=== PATIENT | male | born 1990 | race Caucasian/White ===

== ENCOUNTER 2024-03-25 16:25 | Inpatient (IN) | payer BC ==
[2024-03-25 16:45] LABS: Glucose,Whole Blood 79 mg/dL (70-110)
[2024-03-25 17:47] LABS: Basophils # (A) 0.1 k/uL (0-0.2); Basophils % (A) 1 %; Eosinophils # (A) 0.2 k/uL (0-0.7); Eosinophils % (A) 2 %; HCT 47.8 % (39.0-53.0); HGB 16.9 gm/dL (13.0-17.5); Lymphocytes # (A) 2.4 k/uL (1.0-4.8); Lymphocytes % (A) 22 %; MCH 31.1 pg (25.0-35.0); MCHC 35.3 g/dL (31.0-37.0); MCV 88.2 fL (80.0-100.0); Mean Platelet Volume 7.5; Monocytes # (A) 0.6 k/uL (0-1.0); Monocytes % (A) 6 %; Neutrophils # (A) 7.3 k/uL (1.3-7.7); Neutrophils % (A) 68 %; Platelet Count 230 k/uL (150-450); RBC 5.42 m/uL (4.30-5.90); RDW 12.1 % (11.5-15.5); WBC 10.8 k/uL (3.8-10.6)
[2024-03-25 17:57] LABS: ALT 43 U/L (4-49); AST 26 U/L (17-59); African American GFR (CKD) >90 (>60 ml/min/1.73 sqM); Albumin 4.5 g/dL (3.5-5.0); Alkaline Phosphatase 90 U/L (38-126); Anion Gap 10 mmol/L; Blood Urea Nitrogen 10 mg/dL (9-20); Calcium 9.1 mg/dL (8.4-10.2); Carbon Dioxide 20 mmol/L (22-30); Chloride 109 mmol/L (98-107); Glucose 84 mg/dL (74-99); Non-African American GFR(CKD) >90 (>60 ml/min/1.73 sqM); Sodium 139 mmol/L (137-145); Total Bilirubin 0.7 mg/dL (0.2-1.3); Total Protein 7.3 g/dL (6.3-8.2)
[2024-03-25 17:58] LABS: Partial Thromboplastin Time 29.7 sec (22.0-30.0); Prothrombin Time 10.9 sec (10.0-12.5)
--- NOTE | 2024-03-25 18:07 | XR ---
EXAMINATION TYPE: XR chest 2V DATE OF EXAM: 03/25/2024 5:41 PM CLINICAL INDICATION:Male, 34 years old with history of chest pain, sob; [facility] COMPARISON: None TECHNIQUE: XR chest 2V Frontal and lateral views of the chest. FINDINGS: Lungs/Pleura: There is no evidence of pleural effusion, focal consolidation, or pneumothorax. Pulmonary vascularity: Unremarkable. Heart/mediastinum: Cardiomediastinal silhouette is unremarkable. Musculoskeletal: No acute osseous pathology. IMPRESSION: No acute cardiopulmonary disease/process.
--- NOTE | 2024-03-25 19:02 | ED ---
Chest Pain HPI - General Chief Complaint: Chest Pain Stated Complaint: Chest pain Time Seen by Provider: 03/25/24 16:48 Source: patient, EMS, RN notes reviewed Mode of arrival: EMS Limitations: no limitations - History of Present Illness Initial Comments: 34-year-old male presenting to the ED with complaints of chest pain. Patient states earlier today noticed pain on the left side of his chest which she says is squeezing in nature. States that pain seems to radiate to his left arm. No associated diaphoresis with this. Patient does note he drank 10 beers today and has been having some nausea with this as well. Patient is a pack per day smoker for the past 15 years. 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 No fever or chills. No abdominal pain. No change in bowel bladder habits. No other complaints at this time. - Related Data Previous Rx's Medication Instructions Recorded Acetaminophen-Codeine 300-30mg 1 each PO Q6H PRN #20 tablet 06/01/15 [Tylenol #3] Allergies Allergy/AdvReac Type Severity Reaction Status Date / Time No Known Allergies Allergy Verified 03/25/24 17:02 Review of Systems ROS Statement: Those systems with pertinent positive or pertinent negative responses have been documented in the HPI. ROS Other: All systems not noted in ROS Statement are negative. Past Medical History Past Medical History: No Reported History History of Any Multi-Drug Resistant Organisms: None Reported Past Surgical History: No Surgical Hx Reported Past Psychological History: No Psychological Hx Reported Smoking Status: Current every day smoker Past Alcohol Use History: Occasional Past Drug Use History: None Reported General Exam Limitations: no limitations General appearance: alert, in no apparent distress Eye exam: Present: normal appearance Neck exam: Present: normal inspection Respiratory exam: Present: normal lung sounds bilaterally Cardiovascular Exam: Present: regular rate, normal rhythm GI/Abdominal exam: Present: soft, normal bowel sounds. Absent: distended, tenderness, guarding, rebound, rigid Neurological exam: Present: alert, oriented X3 Skin exam: Present: warm, dry Course Vital Signs 03/25/24 03/25/24 03/25/24 16:52 17:05 17:06 Temperature 98.0 F Pulse Rate 94 Pulse Rate [ 84 Pulse Oximetery ] Respiratory 22 22 Rate Blood Pressure 153/79 O2 Sat by Pulse 100 Oximetry 03/25/24 19:01 Temperature Pulse Rate 76 Pulse Rate [ Pulse Oximetery ] Respiratory 16 Rate Blood Pressure 148/78 O2 Sat by Pulse 98 Oximetry Procedures - [place] Protocol (Time Out) Nurse: Lei Townsend Chest Pain MDM - MDM Was pt. sent in by a medical professional or institution (, BECCA, PULP REFINER OPERATOR, urgent care, hospital, or custodial...) When possible be specific @ -No Did you speak to anyone other than the patient for history (EMS, parent, family, police, friend...)? What history was obtained from this source @ -No Did you review nursing and triage notes (agree or disagree)? Why? @ -I reviewed and agree with nursing and triage notes Were old charts reviewed (outside hosp., previous admission, EMS record, old EKG, old radiological studies, urgent care reports/EKG's, custodial records)? Report findings @ -No old charts were reviewed Differential Diagnosis (chest pain, altered mental status, abdominal pain women, abdominal pain men, vaginal bleeding, weakness, fever, dyspnea, syncope, headache, dizziness, GI bleed, back pain, seizure, CVA, palpatations, mental health, musculoskeletal)? @ -Differential Chest Pain: Stable Angina, Unstable Angina, STEMI, NSTEMI Aortic Dissection, Pneumothorax, Musculoskeletal, Esophageal Spasm GERD, Cholecystitis, Pancreatitis, Zoster, this is not meant to be an all-inclusive list. EKG interpreted by me (3pts min.). @ -EKG interpreted me showing a sinus rhythm which does show T wave inversions in III. Rate of 90 bpm. IN 136, QRS 91, QT/QTc 344/392. X-rays interpreted by me (1pt min.). @ -Chest x-ray interpreted me which revealed no evidence of acute finding. CT interpreted by me (1pt min.). @ -None done U/S interpreted by me (1pt. min.). @ -None done What testing was considered but not performed or refused? (CT, X-rays, U/S, labs)? Why? @ -None What meds were considered but not given or refused? Why? @ -None Did you discuss the management of the patient with other professionals (professionals i.e. , BECCA, PULP REFINER OPERATOR, lab, RT, psych nurse, social service technician, tag and label cutter, teacher, weapons electrical engineering officer, binder caser)? Give summary @ -Case discussed with Gretel, who accepts admission under [facility]. Was smoking cessation discussed for >3mins.? @ -No Was critical care preformed (if so, how long)? @ -Yes, 35 minutes Were there social determinants of health that impacted care today? How? (Homelessness, low income, unemployed, alcoholism, drug addiction, transpo rtation, low edu. Level, literacy, decrease access to med. care, fci, rehab)? @ -No Was there de-escalation of care discussed even if they declined (Discuss DNR or withdrawal of care, Hospice)? DNR status @ -No What co-morbidities impacted this encounter? (DM, HTN, Smoking, COPD, CAD, Cancer, CVA, ARF, Chemo, Hep., AIDS, mental health diagnosis, sleep apnea, morbid obesity)? @ -None Was patient admitted / discharged? Hospital course, mention meds given and route, prescriptions, significant lab abnormalities, going to OR and other pertinent info. @ -Admission 34-year-old male presented to the ED with complaints of chest pain and associated shortness of breath today. Pain left side of his chest which is squeezing in nature. EKG performed which did show a sinus rhythm T wave inversion lead III. Laboratory studies largely unremarkable other than initial troponin elevated at 0.045. Repeat was performed which was also elevated at 0.050. Patient started on heparin. Will be admitted with consult to cardiology. Undiagnosed new problem with uncertain prognosis? @ -No Drug Therapy requiring intensive monitoring for toxicity (Heparin, Nitro, Insulin, Cardizem)? @ -Yes, heparin Were any procedures done? @ -No Diagnosis/symptom? @ -Chest pain, elevated troponin Acute, or Chronic, or Acute on Chronic? @ -Acute Uncomplicated (without systemic symptoms) or Complicated (systemic symptoms)? @ -Complicated Side effects of treatment? @ -No Exacerbation, Progression, or Severe Exacerbation? @ -No Poses a threat to life or bodily function? How? (Chest pain, [place], SC, pneumonia, PE, COPD, DKA, ARF, appy, cholecystitis, CVA, Diverticulitis, Homicidal, S uicidal, threat to staff... and all critical care pts) @ -Possibly, chest pain Disposition Clinical Impression: Chest pain, Elevated troponin Disposition: ADMITTED IP TO THIS HOSP Condition: Good Referrals: None,Stated [Primary Care Provider] - 1-2 days Time of Disposition: 17:30
[2024-03-25] MEDS ORDERED: HEPARIN SODIUM 1,000 UN/ML (10ML VL) IV PRN (19:24)
[2024-03-25] MEDS: NICOTINE 21MG/24HR PATCH TRANSDERM STA (22:20)
[2024-03-25] MEDS: NITROGLYCERIN SL TABS 0.4 MG TAB SUBLINGUAL PRN (22:21)
[2024-03-25] MEDS: HEPARIN SODIUM 1,000 UN/ML (10ML VL) IV ONE (22:22)
[2024-03-25] MEDS: HEPARIN SOD,PORK IN 0.45% NACL 25,000 UNIT in 0.45% NACL 1 250ML.BAG IV SCH (22:23)
[2024-03-25] MEDS: MORPHINE SULFATE 2 MG/ML SYRINGE IVP STA (22:26)
[2024-03-26 08:46] LABS: Basophils # (A) 0.1 k/uL (0-0.2); Basophils % (A) 1 %; Eosinophils # (A) 0.2 k/uL (0-0.7); Eosinophils % (A) 3 %; HCT 47.3 % (39.0-53.0); HGB 16.1 gm/dL (13.0-17.5); Lymphocytes # (A) 2.4 k/uL (1.0-4.8); Lymphocytes % (A) 31 %; MCH 30.7 pg (25.0-35.0); MCHC 34.1 g/dL (31.0-37.0); MCV 90.1 fL (80.0-100.0); Monocytes # (A) 0.5 k/uL (0-1.0); Monocytes % (A) 7 %; Neutrophils # (A) 4.5 k/uL (1.3-7.7); Neutrophils % (A) 57 %; Platelet Count 227 k/uL (150-450); RBC 5.25 m/uL (4.30-5.90); WBC 7.8 k/uL (3.8-10.6)
[2024-03-26] MEDS: ASPIRIN 325 MG TAB PO SCH (09:29)
[2024-03-26] MEDS ORDERED: NITROGLYCERIN SL TABS 0.4 MG TAB SUBLINGUAL PRN ×2 (10:05→21:41)
[2024-03-26] MEDS ORDERED: ALPRAZolam 0.5 MG TAB PO PRN (10:05)
[2024-03-26] MEDS: ASPIRIN 325 MG TAB PO STA (10:25)
[2024-03-26] MEDS: SODIUM CHLORIDE 0.9% 1,000 ML in EMPTY BAG 1 BAG IV ONE (10:41)
[2024-03-26] MEDS: ATORVASTATIN 80 MG TAB PO STA (10:41)
--- NOTE | 2024-03-26 11:27 | P.CRDCN ---
History of Present Illness Consult date: 03/26/24 Consult reason: chest pain (And elevated troponin) History of present illness: History of present illness: This is a 34-year-old male with no previous cardiac history. Patient presented to this hospital with complaints of left-sided chest pain with radiation to the left arm. Patient did drink 10 beers and was having some nausea and the chest pain develops after the nausea. He describes it as a tightness in his chest and then he developed panicky feeling and that only made things worse. His children and significant other had only caused strep and fever last week. He states his throat is a little itchy this morning. Chest pain was on the left side under the breast area. When he lays down the pain is worse. Nitroglycerin seemed to help yesterday but did not today and only caused headache. Currently pain is a 12/10 and previously was a 5-6. He does have a strong family history of father having [place] in his 40s to 50s including other family members on his father's side. Mother also has history of coronary artery disease. He is a smoker of a pack per day for the past 15 years. Patient has been started on heparin drip. Linsey cali is seen today in the emergency center waiting for bed on the cardiac stepdown unit. EKG sinus rhythm with no acute ST-T wave changes. Chest x-ray: No acute process CBC INR, D-dimer within normal limits. CO2 20, potassium 4, creatinine 0.79. Liver function test are normal. Magnesium 1.7. Troponin 0.045, 0.05, 0.045. Home cardiac medications: None Review Of Systems: At the time of my exam: CONSTITUTIONAL: Denies fever or chills. HEENT: Denies blurred vision, vision changes, or eye pain. Denies hemoptysis CARDIOVASCULAR: Reports chest pain. Denies orthopnea. Denies PND. Denies palpita tions RESPIRATORY: Denies shortness of breath. GASTROINTESTINAL: Denies abdominal pain. Denies nausea or vomiting. HEMATOLOGIC: Denies bleeding disorders. GENITOURINARY: Denies any blood in urine. SKIN: Denies pruitis. Denies rash. Physical examination: Gen: This is a 34-year-old male in no acute distress. VS: reviewed, blood pressure 129/95, heart rate 80, pulse ox 100% on room air. HEENT: Head is atraumatic, normocephalic. Pupils equal, round. Sclerae is anicteric. NECK: Supple. No JVD. No carotid bruit. LUNGS: Clear to auscultation. No wheezes or rhonchi. No intercostal retractions. HEART: Regular rate and rhythm. No murmur. ABDOMEN: Soft No tenderness. EXTREMITIES: No pedal edema. No calf tenderness. NEUROLOGICAL: Patient is awake, alert and oriented x3. Assessment: Elevated troponin, rule out coronary artery disease Strong family history of premature coronary artery disease Tobacco use and dependence Alcohol use Plan: Schedule patient for cardiac catheterization today. Continue heparin drip Obtain 2-D echocardiogram and Doppler study to assess cardiac structure and f unction Obtain sed rate, CRP and repeat EKG to rule out pericarditis Further recommendations to follow based upon clinical course Thank you kindly for this consultation. Nurse practitioner note has been reviewed, I agree with documented findings and plan of care. Patient was seen and examined. Past Medical History Past Medical History: No Reported History History of Any Multi-Drug Resistant Organisms: None Reported Past Surgical History: No Surgical Hx Reported Past Psychological History: No Psychological Hx Reported Smoking Status: Current every day smoker Past Alcohol Use History: Occasional Past Drug Use History: None Reported Medications and Allergies Home Medications Medication Instructions Recorded Confirmed Type No Known Home Medications 03/26/24 03/26/24 History Allergies Allergy/AdvReac Type Severity Reaction Status Date / Time No Known Allergies Allergy Verified 03/26/24 07:06 Physical Exam Vitals: Vital Signs Temp Pulse Pulse Resp BP Pulse Ox 03/26/24 07:57 80 20 129/95 100 03/26/24 06:00 86 18 122/73 96 03/26/24 03:24 73 18 111/90 97 03/25/24 23:17 68 16 121/72 97 03/25/24 22:27 86 16 119/70 97 03/25/24 19:01 76 16 148/78 98 03/25/24 17:06 22 03/25/24 17:05 84 03/25/24 16:52 98.0 F 94 22 153/79 100 Intake and Output 03/25/24 03/26/24 03/26/24 22:59 06:59 14:59 Other: Weight 83.915 kg Results 03/26/24 08:15 03/25/24 17:00 Cardiac Enzymes 03/25/24 03/25/24 03/25/24 Range/Units 17:00 17:00 19:42 AST 26 (17-59) U/L Troponin I 0.045 H* 0.050 H* (0.000-0.034) ng/mL 03/25/24 Range/Units 22:30 AST (17-59) U/L Troponin I 0.045 H* (0.000-0.034) ng/mL Coagulation 03/25/24 03/26/24 Range/Units 17:00 08:15 PT 10.9 11.0 (10.0-12.5) sec APTT 29.7 (22.0-30.0) sec CBC 03/25/24 03/26/24 Range/Units 17:00 08:15 WBC 10.8 H 7.8 (3.8-10.6) k/uL RBC 5.42 5.25 (4.30-5.90) m/uL Hgb 16.9 16.1 (13.0-17.5) gm/dL Hct 47.8 47.3 (39.0-53.0) % Plt Count 230 227 (150-450) k/uL Comprehensive Metabolic Panel 03/25/24 Range/Units 17:00 Sodium 139 (137-145) mmol/L Potassium 4.0 (3.5-5.1) mmol/L Chloride 109 H (98-107) mmol/L Carbon Dioxide 20 L (22-30) mmol/L BUN 10 (9-20) mg/dL Creatinine 0.79 (0.66-1.25) mg/dL Glucose 84 (74-99) mg/dL Calcium 9.1 (8.4-10.2) mg/dL AST 26 (17-59) U/L ALT 43 (4-49) U/L Alkaline Phosphatase 90 (38-126) U/L Total Protein 7.3 (6.3-8.2) g/dL Albumin 4.5 (3.5-5.0) g/dL Current Medications Generic Name Dose Route Start Last Admin Trade Name Freq PRN Reason Stop Dose Admin Aspirin 325 mg 03/26/24 09:00 Aspirin 325 Mg Tab PO DAILY NICOLE Heparin Sodium (Porcine) 0 unit 03/25/24 19:24 Heparin Sodium 1,000 Un/Ml (10ml Vl) IV PER PROTOCOL PRN Low PTT Protocol Heparin Sodium/Sodium Chloride 250 mls @ 10.07 mls/hr 03/25/24 19:30 03/25/24 22:23 25,000 unit/ Sodium Chloride IV 12 units/kg/hr .Q24H NICOLE 10.07 mls/hr Administration Protocol 12 UNITS/KG/HR Nitroglycerin 0.4 mg 03/25/24 21:51 03/26/24 08:00 Nitroglycerin Sl Tabs 0.4 Mg Tab SUBLINGUAL 0.4 mg Q5M PRN Administration Chest Pain Intake and Output 03/25/24 03/26/24 03/26/24 22:59 06:59 14:59 Other: Weight 83.915 kg 03/26/24 08:15 03/25/24 17:00
[2024-03-26] MEDS ORDERED: LIDOCAINE 1% INJ 10MG/ML (20 ML MDV) ONE (16:03)
[2024-03-26] MEDS ORDERED: HEPARIN SODIUM 1,000 UN/ML (10ML VL) ONE (16:03)
[2024-03-26] MEDS ORDERED: fentaNYL (PF) 50 MCG/ML 2 ML AMP ONE ×2 (16:03→17:46)
[2024-03-26] MEDS ORDERED: VERAPAMIL 2.5 MG/ML 2 ML AMP ONE (16:03)
[2024-03-26] MEDS: MIDAZOLAM 2 MG/2 ML VIAL IVP ONE ×2 (16:13→16:31)
[2024-03-26] MEDS: fentaNYL (PF) 50 MCG/ML 2 ML AMP IVP ONE ×2 (16:13→17:49)
[2024-03-26] MEDS: LIDOCAINE 1% INJ 10MG/ML (20 ML MDV) SQ ONE (16:16)
[2024-03-26] MEDS: VERAPAMIL SYRINGE (5 MG/10 ML) INTRAARTER ONE (16:18)
[2024-03-26] MEDS: IV FLUID CONTINUATION 1,000 ML IV ONE (16:20)
[2024-03-26] MEDS: HEPARIN SODIUM 1,000 UN/ML (10ML VL) IV ONE (16:23)
[2024-03-26] MEDS ORDERED: TICAGRELOR 90 MG TAB ONE (16:24)
[2024-03-26] MEDS: TICAGRELOR 90 MG TAB PO ONE (16:27)
[2024-03-26] MEDS: NITROGLYCERIN 1000MCG/10ML SYRINGE INTRACORON ONE (16:38)
[2024-03-26] MEDS: IOPAMIDOL-370 100ML BTL INJ ONE ×2 (17:00→17:50)
[2024-03-26 17:20] LABS: Chol/HDL Ratio 7.01 Ratio; LDL Cholesterol,Calculated 94.7 mg/dL (0.0-131.0)
[2024-03-26] MEDS ORDERED: METOPROLOL TARTRATE 5 MG/5 ML VIAL IVP ONE (17:47)
[2024-03-26] MEDS: METOPROLOL TARTRATE 5 MG/5 ML VIAL IVP ONE (17:50)
[2024-03-26 20:12] VITALS: RESP 18
[2024-03-26] MEDS ORDERED: ATROPINE SULFATE 0.1 MG/ML 10ML SYRINGE IV PRN (21:41)
[2024-03-26] MEDS ORDERED: MAG HYDROX/AL HYDROX/SIMETH 30 ML CUP PO PRN (21:41)
[2024-03-26] MEDS ORDERED: RX INFO: IV CONTRAST WAS GIVEN 1 EACH MISC MISCELLANE PRN (21:41)
[2024-03-26] MEDS ORDERED: ZOLPIDEM 5 MG TAB PO PRN (21:41)
[2024-03-26] MEDS ORDERED: SODIUM CHLORIDE 0.9% 1,000 ML in EMPTY BAG 1 BAG IV SCH (21:45)
--- NOTE | 2024-03-26 22:07 | P.PRCINT ---
Percutaneous Coronary Int. - Percutaneous Coronary Intervention Percutaneous Coronary Intervention: PROCEDURES PERFORMED: Left heart catheterization, bilateral coronary angiography, ultrasound guided arterial access, PCI proximal RCA with a 4.0 x 12mm Xience DUSTIN< post dilated with a 4.5 NC balloon, PCI mid RCA with a 3.5 x 12mm Xience DUSTIN, post dilated with a 4.0 NC balloon with kissing balloon angioplasty of acute marginal and mid RCA with a 3.0mm and 3.25mm balloon respectively, IVUS RCA INDICATION: NSTEMI CONSENT:I have discussed the risks, benefits and alternative therapies for the above-mentioned procedure and for both sedation/analgesia as well as necessary blood product administration, if indicated, as they pertain to this patient. The patient has indicated understanding and acceptance of the risks and procedures discussed. PROCEDURE: After the risks, benefits and alternatives of the above mentioned procedure explained in detail with the patient, informed consent was obtained. Patient was taken to the catheterization lab and prepped and draped in usual fashion. Ultrasound guidance was used to assess for arterial access. 1% lidocaine was used to anesthetize the right radial artery. A 6-[place] Island[place] sheath was placed in the right radial artery using modified Seldinger technique and ultrasound guidance. Left coronary angiography was performed with a 5-[place] JL 3.5 catheter and right coronary angiography was performed with a 5-[place] FR5 catheter in various views. A 5-[place] FR5 catheter was inserted into the left ventricle and pressure measurements were obtained. The decision was made to perform PCI of the RCA. A 6FR AL 0.75 guide was used to engage the RCA. A 0.014 BMW wire was placed in the distal acute marginal and an additional 0.014 BMW wire was advanced into the distal RCA. Predilation were performed with a 2.25mm balloon in both the marginal and RCA branch. Next IVUS was performed which showed reference vessel proximally with 4.5mm and at the mid segment 3.5-4.0mm as well disease of the proximal marginal branch and reference marginal branch 3.0mm. Therefore predilation was performed of the marginal branch with a 3.0mm NC balloon and balloon of the mid RCA with a 3.5mm NC balloon. Next PCI was performed of the mid RCA with a 3.5 x 12mm Xience DUSTIN. There was some decreased flow in the marginal with the marginal appearing to supply some of the PLV territory and therefore kissing balloon angioplasty was recommended. The marginal branch was rewired with a Supercross 90 degree microcatheter and a 0.014 BMW wire and then the microcatheter was trapped with a 2.5mm balloon and removed. Next kissing balloon angioplasty was performed with a 3.25mm in the mid RCA and a 3.0mm balloon in the marginal branch. Initially there was spasm of the distal edge of the stent however IVUS did not show any dissection and improved with nitro. The proximal lesion was pre dilated with a 3.5mm NC balloon and then a 4.0 x 12mm Xience DUSTIN was placed in the proximal RCA. The stent was post dilated with a 4.5mm NC balloon. Final angiograms were performed. Preintervention there was 95% stenosis and BAYLEE 3 flow and post intervention there was < 10% stenosis and BAYLEE 3 flow. The right radial sheath was removed and a TR band was placed with hemostasis achieved. The patient tolerated the procedure well. Patient was transported back to the post catheterization holding area in stable condition. Conscious Sedation: Patient was monitored under the direct supervision of myself for conscious sedation using Versed and fentanyl for a total duration of 90 minutes HEMODYNAMICS: Ao: 121/73 LV: 129/5, LVEDP 13 SELECTIVE CORONARY ARTERIOGRAPHY: LEFT MAIN: The left main is a large caliber vessel which bifurcates into the LAD and circumflex. There is no significant stenosis. LEFT ANTERIOR DESCENDING CORONARY ARTERY: LAD is a large caliber vessel which wraps around to the apex. There is no significant stenosis. LEFT CIRCUMFLEX CORONARY ARTERY: Left circumflex is a moderate caliber vessel without significant stenosis. RIGHT CORONARY ARTERY: The right coronary artery is a large caliber vessel which gives off a PDA and PLV branch and is the dominant vessel. There is a proximal RCA 70% stenosis and a mid RCA 95% stenosis at the level of a moderate caliber acute marginal branch which supplies a moderate territory of the PLV area. The marginal branch has a proximal 95% stenosis. FINAL IMPRESSION: 1. CAD as described above with tandem 70%, 95% proximal and mid RCA stenoses. 2. S/p PCI proximal RCA with a 4.0 x 12mm Xience DUSTIN< post dilated with a 4.5 NC balloon, PCI mid RCA with a 3.5 x 12mm Xience DUSTIN, post dilated with a 4.0 NC balloon with kissing balloon angioplasty of acute marginal and mid RCA with a 3.0mm and 3.25mm balloon respectively 3. Normal left sided filling pressures PLAN: 1. Aggressive risk factor modification per most recent ACC/AHA guidelines. 2. Continue dual antiplatelets with aspirin and Brillinta for 12 months 3. Tobacco cessation discussed in detail with patient and also given information on [place] Quit Line.
[2024-03-26] MEDS: METOPROLOL TARTRATE 25 MG TAB PO SCH (23:01)
[2024-03-26] MEDS: TICAGRELOR 90 MG TAB PO SCH (23:01)
[2024-03-26] MEDS: ALPRAZolam 0.25 MG TAB PO PRN (23:01)
--- NOTE | 2024-03-27 00:10 | P.HPIM ---
History of Present Illness H&P Date: 03/26/24 Chief Complaint: Chest pain Patient is a 34-year-old male without significant past medical history presents to ER with complaints of chest pain started 30 minutes before coming to ER. He started having left retrosternal chest pain associated with difficulty in breathing and tingling sensation and numbness of the left arm. Patient also felt nauseous. Presented to ER yesterday evening. Denies any diaphoresis. Patient states that he drank 10 beers and has been having nausea when he came to ER. Patient is a currently everyday smoker and states that he has a family his tory of coronary disease. Patient also states that he did have episode of dizziness on last Tuesday while he was in the kitchen. Otherwise denies any exertional shortness of breath. Otherwise denies any recent illnesses. No sick contacts. No recent travel. No cough or sputum production. No nausea vomiting or abdominal pain. No leg swelling. Chest x-ray showed no acute cardiopulmonary process. EKG showed sinus rhythm with heart rate 90 Laboratory data showed WBC 10.8 hemoglobin 16.9 and platelets 230 D-dimer less than 0.17 Sodium 139 potassium 4.0 chloride 109 bicarb is 20 BUN 10 and creatinine 0.79 and blood sugar 84 Liver enzymes are not elevated. Magnesium 1.7, troponin 0.045, 0.050 and 0.045 and CRP 0.5 and LDL 94.7. Review of Systems Constitutional: Patient denies any fever or chills . No generalized weakness or weight loss. Abdomen: Patient denied nausea vomiting and diarrhea and abdominal pain. Cardiovascular: Patient denies any chest pain or short of breath no palpitations. Respiratory: patient denied any cough is from production. No shortness of breath Neurologic: Patient denied any numbness or tingling headache. Musculoskeletal: Patient denies any complaints of joint swelling or deformity. Skin: Negative Psychiatric: Negative Endocrine: No heat or cold intolerance. No recent weight gain. Genitourinary: No dysuria or hematuria. All other 14 point ROS negative except the above Past Medical History Past Medical History: No Reported History History of Any Multi-Drug Resistant Organisms: None Reported Past Surgical History: No Surgical Hx Reported Past Psychological History: No Psychological Hx Reported Smoking Status: Current every day smoker Past Alcohol Use History: Occasional Past Drug Use History: None Reported Medications and Allergies Home Medications Medication Instructions Recorded Confirmed Type No Known Home Medications 03/26/24 03/26/24 History Allergies Allergy/AdvReac Type Severity Reaction Status Date / Time No Known Allergies Allergy Verified 03/26/24 07:06 Physical Exam Vitals: Vital Signs Temp Pulse Pulse Resp BP Pulse Ox 03/26/24 09:00 76 20 130/74 98 03/26/24 07:57 80 20 129/95 100 03/26/24 06:00 86 18 122/73 96 03/26/24 03:24 73 18 111/90 97 03/25/24 23:17 68 16 121/72 97 03/25/24 22:27 86 16 119/70 97 03/25/24 19:01 76 16 148/78 98 03/25/24 17:06 22 03/25/24 17:05 84 03/25/24 16:52 98.0 F 94 22 153/79 100 Intake and Output 03/25/24 03/26/24 03/26/24 22:59 06:59 14:59 Other: Weight 83.915 kg PHYSICAL EXAMINATION: Patient is lying in the bed comfortably, no acute distress, awake alert and oriented.. HEENT: Normocephalic. Neck is supple. Pupils reactive. Nostrils clear. Oral cavity is moist. Neck reveals no JVD, carotid bruits, or thyromegaly. CHEST EXAMINATION: Trachea is central. Symmetrical expansion. Lung carr clear to auscultation and percussion. CARDIAC: Normal S1, S2 with no gallops. No murmurs ABDOMEN: Soft. Bowel sounds normal. No organomegaly. No abdominal bruits. Extremities: reveal no edema. No clubbing or cyanosis Neurologically awake, alert, oriented x3 with well-coordinated movements. No focal deficits noted Skin: No rash or skin lesions. Psychiatric: Coperative. Nonsuicidal Musculoskeletal: No joint swelling or deformity. Normal range of motion. Results CBC & Chem 7: 03/26/24 08:15 03/25/24 17:00 Labs: Abnormal Lab Results - Last 24 Hours (Table) 03/25/24 03/25/24 03/25/24 Range/Units 17:00 17:00 17:00 WBC 10.8 H (3.8-10.6) k/uL Chloride 109 H (98-107) mmol/L Carbon Dioxide 20 L (22-30) mmol/L Troponin I 0.045 H* (0.000-0.034) ng/mL 03/25/24 03/25/24 Range/Units 19:42 22:30 WBC (3.8-10.6) k/uL Chloride (98-107) mmol/L Carbon Dioxide (22-30) mmol/L Troponin I 0.050 H* 0.045 H* (0.000-0.034) ng/mL Thrombosis Risk Factor Assmnt - DVT/VTE Prophylaxis DVT/VTE Prophylaxis: Pharmacologic Prophylaxis ordered Assessment and Plan Assessment: Acute non-ST elevated [place] with elevated troponin levels Chest pain secondary to above Current everyday smoker Family history of coronary artery disease Plan: Patient was given a dose of aspirin and statin in the ER. Continue with daily monitoring. Continue with heparin drip. Currently patient denies any chest pain. Plan for cardiac catheterization today afternoon. Continue to monitor closely. Smoking cessation has been counseled extensively. Follow-up closely. Time with Patient: Greater than 30
[2024-03-27 01:34] VITALS: TEMP 97.5
[2024-03-27] MEDS ORDERED: HEPARIN SODIUM,PORCINE (1 ML) 2,500 UNIT in SODIUM CHLORIDE 0.9% 250 ML IRRIGATION PRN (07:00)
[2024-03-27] MEDS ORDERED: HEPARIN SODIUM,PORCINE 10,000 UNIT in SODIUM CHLORIDE 0.9% 1,000 ML IRRIGATION PRN (07:00)
[2024-03-27 07:36] LABS: African American GFR (CKD) >90 (>60 ml/min/1.73 sqM); Anion Gap 6 mmol/L; Blood Urea Nitrogen 12 mg/dL (9-20); Carbon Dioxide 26 mmol/L (22-30); Chloride 107 mmol/L (98-107); Glucose 97 mg/dL (74-99); Non-African American GFR(CKD) >90 (>60 ml/min/1.73 sqM); Potassium 4.6 mmol/L (3.5-5.1); Sodium 139 mmol/L (137-145)
[2024-03-27] MEDS: ASPIRIN 81 MG PO SCH (08:43)
--- NOTE | 2024-03-27 09:52 | CA ---
Transthoracic Echo Report Name: Dalton Kilgore Age: 34 Gender: M : 1990 Exam Date: 03/26/2024 11:52 Exam Location: [place] [facility] Ht (in): 67 Wt (lb): 185 Ordering Physician: Vianney Bolivar Attending/Referring Phys: [id number], [place] Client Customer Manager Gisselle Elise RDCS Procedure CPT: Indications: LVF Cardiac Hx: Technical Quality: Good Contrast 1: Total Dose (mL): Contrast 2: Total Dose (mL): MEASUREMENTS (Male / Female) Normal Values 2D ECHO LV Diastolic Diameter PLAX 4.4 cm 4.2 - 5.9 / 3.9 - 5.3 cm LV Systolic Diameter PLAX 2.9 cm IVS Diastolic Thickness 1.3 cm 0.6 - 1.0 / 0.6 - 0.9 cm LVPW Diastolic Thickness 1.1 cm 0.6 - 1.0 / 0.6 - 0.9 cm LV Relative Wall Thickness 0.5 RV Internal Dim ED PLAX 3.0 cm LA Systolic Diameter LX 3.3 cm 3.0 - 4.0 / 2.7 - 3.8 cm LA Volume 50.1 cm??? 18 - 58 / 22 - 52 cm??? LA Volume Index 24.9 cm???/m??? 16 - 28 cm???/m??? M-MODE Aortic Root Diameter MM 3.2 cm MV E Point Septal Separation 0.3 cm AV Cusp Separation MM 2.5 cm DOPPLER AV Peak Velocity 103.4 cm/s AV Peak Gradient 4.3 mmHg MV Area PHT 3.8 cm??? Mitral E Point Velocity 84.2 cm/s Mitral A Point Velocity 58.9 cm/s Mitral E to A Ratio 1.4 MV Deceleration Time 199.4 ms TR Peak Velocity 229.3 cm/s TR Peak Gradient 21.0 mmHg Right Ventricular Systolic Press 26.0 mmHg FINDINGS Left Ventricle Left ventricular ejection fraction is estimated at 60-65 %. Left ventricular cavity size normal. Mildly increased septal wall thickness. Normal left ventricular wall motion. Right Ventricle Right Atrium Normal right atrial size. Left Atrium Normal left atrial size. Mitral Valve Structurally normal mitral valve. No mitral stenosis, regurgitation or prolapse. Aortic Valve Trileaflet aortic valve. No aortic valve stenosis or regurgitation. Tricuspid Valve Structurally normal tricuspid valve. Mild tricuspid regurgitation. Pulmonic Valve Structurally normal pulmonic valve. Trace to mild pulmonic regurgitation. Pericardium No pericardial effusion. Aorta Normal size aortic root and proximal ascending aorta. CONCLUSIONS Normal LV systolic function Previewed by: Dr. Efrain Parry MD (Electronically Signed) Final Date: 27 Mar 2024 09:51
[2024-03-27 14:28] VITALS: BP 126/72; PULSE 68
[2024-03-27] MEDS ORDERED: ATORVASTATIN 80 MG TAB PO SCH (21:00)
[2024-03-28 04:54] LABS: B/A1 Ratio 0.94 Ratio (0.35 - 1.00)
== END 2024-03-27 13:56 | disposition home or self-care (01) | DRG 322 ==
LOC: EC 16:25 → 3SCARD 21:51 → OBSVTOIN 03-26 14:41 → 3SCARD 03-26 15:55
PROVIDERS: ADMIT Hospitalist; ATTEND Hospitalist
PROC: B240ZZ3 Ultrasonography of Single Coronary Artery, Intravascular (ICD-10-PCS; principal; 2024-03-26 13:20)
PROC: B2111ZZ Fluoroscopy of Multiple Coronary Arteries using Low Osmolar Contrast (ICD-10-PCS; principal; 2024-03-26 13:20)
PROC: 027035Z Dilation of Coronary Artery, One Artery with Two Drug-eluting Intraluminal Devices, Percutaneous Approach (ICD-10-PCS; principal; 2024-03-26 13:20)
PROC: 4A023N7 Measurement of Cardiac Sampling and Pressure, Left Heart, Percutaneous Approach (ICD-10-PCS; principal; 2024-03-26 13:20)
DX: I21.4 Non-ST elevation (NSTEMI) myocardial infarction (principal); I25.10 Atherosclerotic heart disease of native coronary artery without angina pectoris; F17.210 Nicotine dependence, cigarettes, uncomplicated; Z71.6 Tobacco abuse counseling
CPT/HCPCS: 36415; 71046; 76937; 80048; 80053; 80061; 82172; 83695; 83735; 84484; 85025; 85379; 85610; 85652; 85730; 86140; 92921; 92978; 92979; 93005; 93306; 93458; 96365; 96366; 99291

== ENCOUNTER → 2024-11-19 | Outpatient (CLI) | payer BC ==
--- NOTE | 2024-11-19 23:34 | US ---
EXAMINATION TYPE: US gallbladder DATE OF EXAM: 11/19/2024 COMPARISON: NONE CLINICAL INDICATION: Male, 34 years old with history of R74.8 Elevated liver enzymes; R11. Nausea; TECHNIQUE: Grayscale and color Doppler imaging of the right upper quadrant was performed. FINDINGS: EXAM MEASUREMENTS: Liver Length: 16.7 cm a normal less than 15.5 cm. Gallbladder Wall: 0.11 cm CBD: 0.29 cm Right Kidney: 11.1 x 5.7 x 5.4 cm OREMAN NOTES: Pancreas: wnl Liver: wnl Gallbladder: wnl Evidence for sonographic Martinez's sign: No CBD: wnl Right Kidney: wnl IMPRESSION: 1. Minimal hepatomegaly [facility] Curt Rivera, , 11/19/2024 11:32 PM
== END | disposition home or self-care (01) ==
LOC: RADUSWWP 08:08
PROVIDERS: ATTEND Family Medicine
DX: R16.0 Hepatomegaly, not elsewhere classified (principal); R74.8 Abnormal levels of other serum enzymes; R11.0 Nausea
CPT/HCPCS: 76705